=== PATIENT | male | born 1995 | race African-American/Black ===

== ENCOUNTER 2022-12-15 00:30 | Emergency (ER) | payer SELFPAY ==
[2022-12-15 00:39] VITALS: BP 169/119; PULSE 102; RESP 18; TEMP 36.6; O2SAT 100
--- NOTE | 2022-12-15 01:54 | PC.NURSE ---
Called pt for vitals recheck. No answer and not seen in waiting room.
== END 2022-12-15 01:45 | disposition left against medical advice (07) ==
DX: S01.511A Laceration without foreign body of lip, initial encounter (principal); W45.8XXA Other foreign body or object entering through skin, initial encounter
CPT/HCPCS: 99199

== ENCOUNTER 2022-12-15 10:51 | Emergency (ER) | payer SELFPAY ==
--- NOTE | ~2022-12-15 | XR_ITS ---
EXAMINATION: XR knee RT 3V DATE: 12/15/2022 11:22 INDICATION: Right knee pain. Fall. TECHNIQUE: 3 views of right knee were obtained. COMPARISON: None. FINDINGS: Bone alignment is normal. No fracture. Joint spaces are well maintained. IMPRESSION: 1. Normal right knee. Reviewed, dictated and finalized at location A. IMPRESSION: 1. Normal right knee.
[2022-12-15 10:54] VITALS: BP 185/86; PULSE 94; RESP 18; TEMP 36.2; O2SAT 100
--- NOTE | 2022-12-15 11:04 | ED.FALL ---
HPI - Fall General Chief Complaint: Fall <TEJA Webb Last Filed: 12/15/22 19:03> Stated Complaint: fall- lip lac, knee pain <TEJA Webb Last Filed: 12/15/22 19:03> Time Seen by Provider: 12/15/22 11:04 <TEJA Webb Last Filed: 12/15/22 19:03> Source: patient <TEJA Webb Last Filed: 12/15/22 19:03> Mode of arrival: ambulatory <TEJA Webb Last Filed: 12/15/22 19:03> Limitations: no limitations <TEJA Webb Last Filed: 12/15/22 19:03> History of Present Illness HPI Narrative: Patient is a 27 y/o male who presents to the ED with c/o a fall. Patient reports he tripped and fell over his son's toy last night around midnight. He fell onto his right knee and hit his face against the counter. He sustained a laceration to his lower lip, as well as a small abrasion to his R medial caceres. He c/o R knee pain, worse with ambulating. Denies numbness/tingling, LOC, dizziness, lightheadedness, vision changes, N/V, difficulty swallowing or breathing. Tetanus status unknown. Patient came to the ED last night, but left before being seen. Denies any fever or new injury. He has not taken anything for pain. <TEJA Webb Last Filed: 12/15/22 19:03> Related Data Allergies/Adverse Reactions: Allergies Allergy/AdvReac Type Severity Reaction Status Date / Time No Known Allergies Allergy Unverified 08/23/15 16:21 <TEJA Webb Last Filed: 12/15/22 19:03> Review of Systems Review of Systems: CONSTITUTIONAL: Denies fever, chills, or sweats. ENT: See HPI. CARDIOVASCULAR: Denies chest pain, palpitations, or edema. RESPIRATORY: Denies dyspnea. GASTROINTESTINAL: Denies abdominal pain, nausea, vomiting. MUSCULOSKELETAL: See HPI. NEUROLOGIC: See HPI. <Hyacinth Castro PA-C - Last Filed: 12/15/22 19:03> All systems reviewed & are unremarkable except as noted in HPI and below <Hyacinth Castro PA-C - Last Filed: 12/15/22 19:03> [facility] Past Medical History Medical History: Medical History (Updated 12/15/22 @ 12:38 by Hyacinth Castro PA-C) No pertinent past medical history <Hyacinth Castro PA-C - Last Filed: 12/15/22 19:03> Surgical History Surgical History: Surgical History (Updated 12/15/22 @ 11:06 by Hyacinth Castro PA-C) No pertinent past surgical history <Hyacinth Castro PA-C - Last Filed: 12/15/22 19:03> Social History Social History: Social History (Updated 12/15/22 @ 11:06 by Hyacinth Castro PA-C) Smoking status: Never smoker <Hyacinth Castro PA-C - Last Filed: 12/15/22 19:03> Exam Narrative: GENERAL: Well appearing, morbidly obese, non-toxic, in no acute distress. HEAD: Normocephalic, atraumatic. EYES: PERRLA/EOMI, conjunctiva clear. ENT: V-shaped flap laceration to mid body of lower lip. Active bleeding or drainage. Mild swelling noted to lower lip. No involvement of tesfaye border. No chipped teeth, malocclusion, or trismus. Patient tolerating secretions. NECK: Supple. No adenopathy, no masses. RESPIRATORY: Airway patent, respirations nonlabored. Clear to auscultation bilaterally, no rales, rhonchi, wheezing. CARDIOVASCULAR: Regular rate and rhythm without murmurs, rubs, or gallops. Pedal pulses 2+ and equal bilaterally. MUSCULOSKELETAL: Moves all extremities. Mild limited ROM of R knee due to pain. TTP diffusely throughout R knee joint, worse medially. No appreciable swelling. SKIN: Warm, dry, normal color. No rashes. Small abrasion to medial R proximal caceres. No active bleeding. NEURO: A&O X3. Speech clear. Cranial nerves II-XII grossly intact. No ataxic movements. PSYCHIATRIC: Appropriate mood and affect. Normal interaction. <Hyacinth Castro PA-C - Last Filed: 12/15/22 19:03> Course [facility] SILVERER/PA Physician Supervision Patient was seen by the PA and myself. I made the medical decis
[2022-12-15] MEDS: AMOXICILLIN/CLAVULANATE K 875-125 MG TAB 1 TABLET PO (11:59)
[2022-12-15] MEDS: TETANUS,DIPHTHERIA,AC PERTUSSIS ADULT (0.5 ML) BOOSTRIX IM (12:00)
== END 2022-12-15 13:06 | disposition home or self-care (01) ==
PROVIDERS: Emergency Provider Physician Assistant
DX: S01.511A Laceration without foreign body of lip, initial encounter (principal); S83.91XA Sprain of unspecified site of right knee, initial encounter; Z23 Encounter for immunization; W01.198A Fall on same level from slipping, tripping and stumbling with subsequent striking against other object, initial encounter
CPT/HCPCS: 12011; 73562; 90471; 90715; 99283; A9270